=== PATIENT | female | born 1970 | race Caucasian/White ===

== ENCOUNTER 2020-04-14 19:50 | Emergency (ER) | payer OTHER ==
[2020-04-14] MEDS ORDERED: ASPIRIN 81 MG PO STA (20:20)
[2020-04-14 21:02] LABS: Basophils % (A) 1 %; Eosinophils # (A) 0.2 k/uL (0-0.7); Eosinophils % (A) 3 %; HCT 37.9 % (34.0-46.0); HGB 12.3 gm/dL (11.4-16.0); Lymphocytes # (A) 2.5 k/uL (1.0-4.8); Lymphocytes % (A) 37 %; MCH 29.9 pg (25.0-35.0); MCHC 32.4 g/dL (31.0-37.0); MCV 92.3 fL (80.0-100.0); Mean Platelet Volume 7.8; Monocytes # (A) 0.4 k/uL (0-1.0); Monocytes % (A) 6 %; Neutrophils # (A) 3.4 k/uL (1.3-7.7); Neutrophils % (A) 51 %; Platelet Count 195 k/uL (150-450); RBC 4.11 m/uL (3.80-5.40); RDW 12.4 % (11.5-15.5); WBC 6.8 k/uL (3.8-10.6)
[2020-04-14 21:11] LABS: ALT 28 U/L (4-34); AST 33 U/L (14-36); African American GFR (CKD) >90 (>60 ml/min/1.73 sqM); Albumin 3.8 g/dL (3.5-5.0); Alkaline Phosphatase 85 U/L (38-126); Anion Gap 5 mmol/L; Blood Urea Nitrogen 21 mg/dL (7-17); Calcium 8.9 mg/dL (8.4-10.2); Carbon Dioxide 26 mmol/L (22-30); Chloride 104 mmol/L (98-107); Glucose 91 mg/dL (74-99); Magnesium 2.1 mg/dL (1.6-2.3); Non-African American GFR(CKD) >90 (>60 ml/min/1.73 sqM); Sodium 135 mmol/L (137-145); Total Bilirubin 0.2 mg/dL (0.2-1.3); Total Protein 6.7 g/dL (6.3-8.2)
[2020-04-14 21:17] LABS: D-Dimer 0.33 mg/L FEU (<0.60); INR 0.9 (<1.2); Partial Thromboplastin Time 23.2 sec (22.0-30.0); Prothrombin Time 9.7 sec (9.0-12.0)
--- NOTE | 2020-04-14 21:24 | ED ---
Chest Pain HPI - General Chief Complaint: Chest Pain Stated Complaint: Chest Pain Time Seen by Provider: 04/14/20 20:05 Source: patient Mode of arrival: ambulatory Limitations: no limitations - History of Present Illness Initial Comments: Patient is a 49-year-old female presenting to emergency Department with a chief complaint of a chest pain. Patient reports that she has been moving to a different house. States she felt sudden onset of a sharp midsternal and left- sided chest pain that radiates to the back between her shoulder blades. Patient reports pain is since become dull in nature. Reports the pain is exacerbated with full inspiration. There reports the pain is not exacerbated with any movement. Does report intermittent shortness of breath. Denies any diaphoretic episodes, light headedness, dizziness, headaches, blurry vision, one-sided weakness or paresthesias. Denies family history of cardiac related diseases. Denies smoking. Denies history of hypertension or hypercholesterolemia. Does report binge drinking almost every weekend - Related Data Allergies Allergy/AdvReac Type Severity Reaction Status Date / Time Penicillins Allergy Rash/Hives Verified 04/14/20 19:58 Review of Systems ROS Statement: Those systems with pertinent positive or pertinent negative responses have been documented in the HPI. ROS Other: All systems not noted in ROS Statement are negative. Past Medical History Additional Past Medical History / Comment(s): heart murmur History of Any Multi-Drug Resistant Organisms: None Reported Past Surgical History: No Surgical Hx Reported Past Psychological History: Anxiety Smoking Status: Never smoker Past Alcohol Use History: Daily Past Drug Use History: None Reported General Exam Limitations: no limitations General appearance: alert, in no apparent distress Head exam: Present: atraumatic, normocephalic, normal inspection Eye exam: Present: normal appearance, PERRL, EOMI Pupils: Present: normal accommodation ENT exam: Present: normal exam, normal oropharynx, mucous membranes moist. Absent: TM's normal bilaterally, normal external ear exam Neck exam: Present: normal inspection, full ROM. Absent: tenderness Respiratory exam: Present: normal lung sounds bilaterally. Absent: respiratory distress, wheezes, rales Cardiovascular Exam: Present: regular rate, normal rhythm, normal heart sounds Extremities exam: Present: normal inspection, full ROM, normal capillary refill, other (+2 ulnar and radial pulses. +2 dorsalis pedis and posterior tibialis. Strength 5/5 in bilateral upper and lower extremities.) Back exam: Present: normal inspection, full ROM. Absent: tenderness Neurological exam: Present: alert, oriented X3 Psychiatric exam: Present: normal affect, normal mood Skin exam: Present: warm, dry, intact, normal color Course Vital Signs 04/14/20 19:55 Temperature 98.5 F Pulse Rate 68 Respiratory 16 Rate Blood Pressure 119/81 O2 Sat by Pulse 99 Oximetry Chest Pain [facility] - Differential Diagnosis ACS, Thoracic Aortic Dissection - [facility] Patient is a 49-year-old female with no significant past medical history presenting to emergency Department with a chief complaint of chest pain. Midsternal chest pain radiating to the back. Aortic dissection was a concern. CBC CMP unremarkable. Initial troponin is negative. D-dimer within normal limits. EKG reveals a sinus rhythm and no ST or T-wave changes. Computed tomography scan he was performed to rule out a dissection and it was negative. Patient was given aspirin in the ED. Return parameters were thoroughly d iscussed the patient was understanding and agreeable. Imaging, laboratory results, EKG was reviewed with who is agreeable with treatment plan. Disposition Clinical Impression: Atypical chest pain Disposition: HOME SELF-CARE Condition: Stable Instructions (If sedation given, give patient instructions): Chest Pain (ED) Additional Instructions: Follow up with the primary care. Return to emergency department if symptoms worsen. Is patient prescribed a controlled substance at d/c from ED?: No Referrals: Janneth Lester MD [Primary Care Provider] - 1-2 days Time of Disposition: 23:25
--- NOTE | 2020-04-14 23:11 | CT ---
EXAMINATION TYPE: CT angio chest DATE OF EXAM: 04/14/2020 COMPARISON: None HISTORY: Chest pain radiating to back. CT DLP: 404.2 mGycm Automated exposure control for dose reduction was used. CONTRAST: Performed with IV Contrast, patient injected with 100 mL of Isovue 370. There are 3-D post processed images. There is some mild reticular density at the lung apices. There is no evidence of a pulmonary mass. Th ere is no pleural effusion. There is no pericardial effusion. Upper abdominal soft tissues are intact . Heart appears normal. There is no pericardial effusion. There is no mediastinal adenopathy. Thoraci c aorta shows no evidence of dissection. Ascending aorta measures 3.5 cm. There is normal contrast opacification of the pulmonary arteries. There are no filling defects. Thoracic spine is intact. Sternum is intact. IMPRESSION: Negative exam. No evidence of pulmonary embolism.
[2020-04-15 01:07] VITALS: BP 126/75; PULSE 66; RESP 17; TEMP 97.9
== END 2020-04-15 00:22 | disposition home or self-care (01) ==
LOC: EC 19:50
DX: R07.89 Other chest pain (principal); R06.02 Shortness of breath; Z88.0 Allergy status to penicillin
CPT/HCPCS: 36415; 93005; 85379; 80053; 83735; 84484; 85025; 85610; 85730; 71275; 99285; Q9967